=== PATIENT | female | born 1970 | race Caucasian/White ===

== ENCOUNTER 2022-01-13 11:56 | Emergency (ER) | payer MEDICAID ==
[~2022-01-13] VITALS: Ht 162.6 cm; Wt 93.2 kg
[~2022-01-13 11:56] MED LIST: CYCL-1 PO
[2022-01-13 12:05] VITALS: BP 141/65
[2022-01-13 12:37] LABS: CLARITY,URINE CLEAR (Clear); COLOR,URINE YELLOW (Yellow); GLUCOSE, URINE NEGATIVE (Neg); KETONES,URINE NEGATIVE (Neg); LEUKOCYTE ESTERASE ,URINE NEGATIVE (Neg); NITRITES, URINE NEGATIVE (Neg); OCCULT BLOOD,URINE LARGE (Neg); PH,URINE 6.5 (4.8-8.0); PROTEIN,URINE NEGATIVE (Neg); UROBILINOGEN,URINE 0.2 E.U/dL (0.2-1.0)
[2022-01-13 12:38] LABS: UA COLLECTION TYPE CLN CATCH MIDSTREAM
[2022-01-13 12:46] LABS: SQUAMOUS EPITHELIAL CELL,UR FEW /LPF (FEW)
[2022-01-13 12:48] LABS: BACTERIA,URINE FEW /HPF (Neg); WBC,URINE NONE SEEN /HPF (0-4)
== END 2022-01-13 14:51 | disposition left against medical advice (07) ==
LOC: ER 11:57
DX: R10.84 Generalized abdominal pain (principal); Z53.21 Procedure and treatment not carried out due to patient leaving prior to being seen by health care provider; Z79.899 Other long term (current) drug therapy
CPT/HCPCS: 81001